=== PATIENT | female | born 1980 | race African-American/Black ===

== ENCOUNTER 2025-02-19 14:27 | Emergency (ER) | payer OTHER, SELFPAY ==
--- OUTSIDE RECORDS SUMMARY | 2004-08-17 09:30 | XMS_ITS | Continuity of Care Document ---
Author Organization [facility] Address [address] [place] [phone] Phone Care Team Providers Care Team Truck Driver Name Role Phone Yao Jackson MD Unavailable Unavailable Advance Directives Directive Yes / No Effective Date File Name No Information Encounters Encounter Description Practice Location Reason(s) For Visit Diagnoses Date Provider Providers Copied on Encounter [facility], [address] [place] [address], [id number], tel:[phone] [facility] 710 No Information Manuel Samayoa. [address] [place] [address], [id number], [place]. tel:[phone] Family History Family Member Type Diagnosis Age At Onset No Information Payers Payer name Insurance type Covered green party ID Ayla markham(s) Medicaid [id number] Social History Type Description Quantity Date Captured Comments Sex Female Smoking Status No Information Chief Complaint And Reason For Visit No Information Reason For Referral Reason For Referral No Information History Of Present Illness Encounter Date Complaint History Of Prese nt Illness No Information Functional Status Date Functional Assessmen t No Information Instructions Date Instruction Additional Infor mation No Information Assessments Type Assessment Date No Information Patient Care Teams Name Effective Dates (start - stop) Status Members No Information
[2025-02-19 14:37] VITALS: BP 150/74; PULSE 80; RESP 18; TEMP 36.4; O2SAT 98; BMI 32.7
--- NOTE | 2025-02-19 14:40 | ED.GENADULT ---
HPI - General Adult General Chief complaint: General Medical Stated complaint: Blood In Stool Related Data Allergies Allergy/AdvReac Type Severity Reaction Status Date / Time acetaminophen (Percocet) Allergy Unknown Unknown Verified 02/19/25 14:39 codeine (Codeine) Allergy Unknown UNKNOWN Verified 02/19/25 14:39 meperidine (Demerol) Allergy Unknown Unknown Verified 02/19/25 14:39 morphine (Morphine) Allergy Unknown UNKNOWN Verified 02/19/25 14:39 oxycodone (Percocet) Allergy Unknown Unknown Verified 02/19/25 14:39 From Demerol Allergy Unknown UNKNONW Uncoded 02/19/25 14:39 From Percocet Allergy Unknown UNKNOWN Uncoded 02/19/25 14:39 PMFSH Social History Social History Do you have a plan to hurt others: No Plan Physical Exam ED Vital Signs: Vital Signs - 24 hr 02/19/25 14:37 Temperature 97.6 F Pulse Rate 80 Respiratory Rate 18 Blood Pressure 150/74 H Pulse Oximetry 98 Oxygen Delivery Method Room Air BMI result Body Mass Index 32.7 Course Course Course Narrative: Rapid medical examination performed in triage by Christi Orta PA-C: Patient is a 44 year old assigned female at presenting to the emergency department with rectal pain. Patient states she has had increased rectal pain from her known hemorrhoids with bleeding. Detailed physical exam and review of systems are deferred to the home hospice aide. Labs ordered. Patient placed back in the waiting room pending room availability and results. Discharge Plan Discharge Print Language: Greenlandic
[2025-02-19 14:56] LABS: MANUAL DIFF FLAG NO
[2025-02-19 15:01] LABS: Hematocrit 42.1 % (37.0-47.0); Hemoglobin 15.0 g/dl (12.0-16.0); Imm Gran Abs Auto 0.02 X10*3/uL (0.00-0.03); Imm Gran Pct Auto 0.2 % (0.0-0.4); Lymphocytes Absolute Auto 3.0 X10*3/uL (1.2-4.9); Mean Corpuscular HGB Conc 35.6 g/dl (31.0-35.0); Mean Corpuscular Hemoglobin 30.7 pg (27.0-33.0); Mean Corpuscular Volume 86.1 fL (80.0-98.0); NRBC Abs Auto 0.000 X10*3/uL (0.0-0.012); NRBC Pct Auto 0.0 /100WBC (0.0-0.2); Platelet Count 217 X10*3/uL (160-400); Red Blood Count 4.89 X10*6/uL (4.20-5.50); White Blood Count 8.0 X10*3/uL (4.8-10.8)
[2025-02-19 15:17] LABS: Alanine Aminotransferase 14 U/L (0-31); Albumin Level 4.2 g/dL (3.5-5.0); Alkaline Phosphatase 111 U/L (39-117); Anion Gap 12 (12-20); Aspartate Amino Transferase 17 U/L (5-31); Blood Urea Nitrogen 5 mg/dL (9-16); Calcium 9.2 mg/dL (8.4-10.2); Carbon Dioxide 20 mmol/L (22-29); Chloride 108 mmol/L (96-108); Creatinine Clr Calc Pharmacy 122.3; Estimated Glomerular Filt Rate > 60; Potassium 3.9 mmol/L (3.3-5.1); Sodium 136 mmol/L (135-145); Total Protein 7.3 g/dL (6.5-8.0)
--- NOTE | 2025-02-19 17:01 | PC.NURSE ---
Pt called x 2 for bed, no answer. ED reg confirmed pt left, LWCT
--- OUTSIDE RECORDS SUMMARY | 2025-02-19 18:51 | XMS_ITS | Clinical Summary ---
Author Organization [facility] Address [address] [place] [address] Care Team Providers Care Foundry Engineer Name Role Phone Bayron Zhu Primary Care Provider Source Comments PLEASE NOTE, if this patient is a minor, it may be UNLAWFUL to discuss sensitive information that is contained in these records (such as FAMILY PLANNING, MENTAL HEALTH or SUBSTANCE ABUSE) with the minor patient's parent or other person without the patient's specific authorization.[facility] Allergies Active Allergy Reactions Criticality Noted Date Comments Codeine 05/11/2022 Other reaction(s): chest pain Meperidine 05/11/2022 Other reaction(s): chest pain Morphine 05/11/2022 Other reaction(s): Chest pain Oxycodone-Acetaminophen 05/11/2022 Other reaction(s): itch Medications amoxicillin (AMOXIL) 500 mg capsuleIndicatio ns:Infected tooth Take 1 Cap by mouth 3 (three) times daily 21 Cap 9 Active amoxicillin-pot clavulanate (AUGMENTIN) 875-125 mg per tabletIndication s:Tooth infection Take 1 Tab by mouth 2 (two) times daily 14 Tab 9 Active ibuprofen (ADVIL,MOTRIN) 800 mg tabletIndication s:Toothache Take 1 Tab by mouth 3 (three) times daily as needed for pain 30 Tab 9 Active ibuprofen (ADVIL,MOTRIN) 600 mg tablet Take 1 Tab by mouth 4 (four) times daily as needed for pain 20 Tab 9 Active hydrocortisone (PROCTOZONE-HC) 2.5 % topical cream Apply topically 2 Active ferrous sulfate 325 mg (65 mg iron) EC tablet Take 325 mg by mouth 04/29/202 2 Active DULoxetine (CYMBALTA) [address] capsule 3 Active Active Problems No known active problems Social History Tobacco Use Types Packs/Day Years Used Date Smoking Tobacco: Never Passive Smoke Exposure: Never Smokeless Tobacco: Never Tobacco Cessation:Counseling Given: Not Answered Social Connections Answer Date Recorded Connectedness 0 01/02/2024 Financial Resource Strain Answer Date R ecorded Financial Resource Strain 0 2021 Stress Answer Date Recorded Stress 0 02/23/2022 Physical Activity Answer Date Recorded Physical Activity 0 02/23/2022 Food Insecurity Answer Date Recorded Food 0 01/10/2024 Transportation Needs Answer Date Record ed Transportation 0 02/23/2022 Housing Stability Answer Date Recorded Housing 0 02/23/2022 Safety and Environment Answer Date Abdi rded Safety 0 02/23/2022 Utilities Answer Date Recorded Utilities 0 02/23/2022 Employment Answer Date Recorded Stress 0 01/02/2024 Comments Unknown Sex and Gender Information Value Date Recorded Sex Assigned at Not on file Legal Sex Female 11:36 AM PDT Gender Identity Not on file Sexual Orientation Not on file Last Filed Vital Signs Vital Sign Reading Time Taken Comments Blood Pressure 152/94 04/22/2024 11:07 AM EST Pulse 76 04/22/2024 11:07 AM EST Temperature - - Respiratory Rate - - Oxygen Saturation - - Inhaled Oxygen Concentration - - Weight - - Height - - Body Mass Index - - Plan of Treatment Health Maintenance Due Date Last Done Comments Anxiety Screening 1979 Diabetes Screening 1979 HPV Screening (self-collect) 1979 HPV Screening 1979 Hepatitis C Screening 1979 Lipid Screening 1979 Pap + HPV 1979 HIV Screening 12/21/1994 Relationship Safety Screening/Counseling 12/21/1994 Medicare Annual Wellness Visit 12/21/1997 Imm-Hepatitis B (1 of 3 - 19 + 3-dose series) 12/21/1998 Imm-HPV (1 - 3-dose SCDM series) 12/21/2006 Cervical Cancer Screening 04/06/2014 Pap Smear 04/06/2014 04/06/2011 Breast Cancer Screening (Mammogram) 2019 Alcohol and Drug Screen 04/16/2024 Depression Annual Screen 04/16/2024 [id number] ( season) 2024 Imm-Influenza (#1) 2024 03/26/2019 CT Colonography 12/21/2024 Colonoscopy 12/21/2024 Colorectal Cancer Screening 12/21/2024 FIT/gFOBT 12/21/2024 Fecal DNA 12/21/2024 Flexible Sigmoidoscopy 12/21/2024 Tobacco Screening 04/02/2025 04/02/2024 Dental BW 04/04/2025 04/02/2024, 09/14, 05/02/2023, Additional history exists Dental Examination 04/04/2025 04/02/2024, 0 10/01/2023, 05/02/2023, Additional history exists Dental Perio Charting 04/04/2025 04/02/2024 , 10/01/2023, 05/02/2023 Dental Prophy 04/04/2025 04/02/2024, 09/14, 05/02/2023 Hypertension Screening (#1) 04/22/2025 Dental FMX/Pano 02/25/2027 02/23/2022 Imm-DTaP/Tdap/Td (2 - Td or Tdap) 05/08/2029 020 Cervical Ablation/Cold-Knife Conization Discontinued Cervical Cryotherapy Discontinued Colposcopy Discontinued Excision/Leep Discontinued HPV Genotyping Discontinued Vaginal Pap Discontinued Vulvoscopy Discontinued Procedures Procedure Name Priority Date/Time Associated Diagnosis Comments COMP PERIODONTAL EVALUATION - NEW/EST PATIENT Routine 04/02/2024 9:00 AM EST Encounter for dental examination BITEWINGS - FOUR RADIOGRAPHIC IMAGES Routine 04/02/2024 9:00 AM EST Encounter for dental examination PROPHYLAXIS - ADULT Routine 04/02/2024 9 :00 AM EST Encounter for dental examination PERIODIC ORAL EVALUATION ESTABLISHED PATIENT Routine 04/02/2024 9:00 AM EST Encounter for dental examination INTRAORAL - COMP SERIES OF RADIOGRAPHIC IMAGES Routine 02/23/2022 9:40 AM EST Dental caries extending into pulp from Last 3 Months or Most Recently Relevant to Health Maintenance Insurance [facility] Member Subscriber Plan / Payer (Ef fective 2023-Present) Name:Guillermina Recinos Relation to Subscriber:Self Name:Guillermina Recinos Payer ID:[id number] Group ID:Not on file Type:Medicare Address: [place] [id number] Care Teams Foundry Engineer Relationship Specialty Start Date End Date Bayron Zhu PA PCP - General Internal Medicine 10/01/17
--- OUTSIDE RECORDS SUMMARY | 2025-02-19 18:51 | XMS_ITS | Clinical Summary ---
Author Organization [facility] Address [address] [place] [address] Care Team Providers Care Promotions Coordinator Name Role Phone Ethel Hurtado MD Primary Care Provider + [phone] Surgical History Surgery Date Site/Laterality Comments KIDNEY STONE SURGERY PROCEDURE: NE NEPHROLITHOTOMY REMOVAL CALCULUS; COMMENT: 4-5 procedurs APPENDECTOMY PROCEDURE: NE APPENDECTOMY CHOLECYSTECTOMY PROCEDURE: NE CHOLECYSTECTOMY OTHER SURGICAL HISTORY PROCEDURE: NE LAPS TX ECTOPIC PREG W/SALPING&/OOPHORECTOMY SECTION PROCEDURE: NE DELIVERY ONLY Medical History Medical History Date Comments Fibromyalgia 10/02/2012 DX:Fibromyalgia; COMMENT: [facility] 10/26-minimal records available from [facility] mainly physician gynecologist.no fibromyalgia chf or medullary sponge etc even mentioned in these papers Migraine 10/02/2012 DX:Migraine Depression 10/02/2012 DX:Depression Kidney stones 10/02/2012 DX:Kidney stones Chronic abdominal pain 10/02/2012 DX:Chroni c abdominal pain; COMMENT: Several er visits in transfer records from [facility] 10/26 Mostly for abd pain different locations.has had xrays Has had different casues-BV,ruptured ectopic,kidney stones Family History Medical History Relation Name Comments Heart attack Father Relation Name Status Comments Father Mother Alive multiple sclero sis Sister Alive 1,healthy Social History Tobacco Use Types Packs/Day Years Used Date Smoking Tobacco: Never Smokeless Tobacco: Never Alcohol Use Standard Drinks/Week Comments No 0 (1 standard drink = 0.6 oz pur e alcohol) Comments Unknown Sex and Gender Information Value Date Recorded Sex Assigned at Not on file Legal Sex Female 9:54 AM EST Gender Identity Not on file Sexual Orientation Not on file Obstetrics History Plan of Treatment Health Maintenance Due Date Last Done Comments Breast Cancer Screening 1979 Colorectal Cancer Screening: Colonoscopy 1979 Hepatitis B Vaccines (1 of 3 - 19+ 3-dose series) 12/21/1998 Cervical Cancer Screening: P ap Smear 12/21/2000 HPV Vaccines (1 - 3-dose SCD M series) 12/21/2006 DTaP,Tdap,and Td Vaccines (2 - Td or Tdap) 10/02/2022 10/02/2012 HIV Screening 01/24/2024 Hepatitis C Screening 01/24/2024 Social Influencers of Health Screening 01/24/2024 Depression Screening 04/16/2024 COVID-19 Vaccine (1 - 2023-2 5 season) 2024 Influenza Vaccine (#1) 2024 RSV Immunization Adult Patie nts (1 - 1-dose 75+ series) 12/21/2054 HIB Vaccines Aged Out No longer eligi ble based on patient's age to complete this topic Hepatitis A Vaccines Aged Out No long er eligible based on patient's age to complete this topic IPV Vaccines Aged Out No longer eligi ble based on patient's age to complete this topic MMR Vaccines Aged Out No longer eligi ble based on patient's age to complete this topic Meningococcal ACWY Vaccine Aged Out N o longer eligible based on patient's age to complete this topic Meningococcal B Vaccine Aged Out No l onger eligible based on patient's age to complete this topic Pneumococcal Vaccine: Pediat rics (0 to 5 Years) and At-Risk Patients (6 to 49 Years) Aged Out No longer eligi ble based on patient's age to complete this topic RSV Immunization Patients Un yamilet 20 months Aged Out No longer eligible b ased on patient's age to complete this topic Varicella Vaccines Aged Out No longer eligible based on patient's age to complete this topic Care Teams Promotions Coordinator Relationship Specialty Start Date End Date Ethel Hurtado MD [address] [place] [phone] PCP - General 06/08/15
[2025-02-19 19:11] VITALS: BP 137/52; PULSE 64; TEMP 37.1; O2SAT 98
[2025-02-19 20:48] VITALS: BP 140/71; PULSE 62; TEMP 36.9; O2SAT 97
[2025-02-19] MEDS: Cocoa Butter/Zinc Oxide SUPP.RECT 1 SUPP PR (21:00)
[2025-02-19] MEDS: oxyCODONE HCl Immed Release 5 MG TABLET PO (21:00)
--- NOTE | 2025-02-19 21:05 | ED.GENADULT ---
HPI - General Adult General Chief complaint: General Medical Stated complaint: Blood In Stool Time Seen by Provider: 02/19/25 17:57 Source: patient Mode of arrival: ambulatory Limitations: no limitations History of Present Illness ED Provider: Dr. Paredes [facility] narrative: This is a 44-year-old female presented hospital today for evaluation of hemorrhoid pain. Patient has been having hemorrhoids for the past couple of weeks. She has difficulty passing bowel movement for the past couple of days due to the worsening of the pain. She does have bright red rectal bleeding. Patient stated this pain is excruciating. Therefore she presents to the ER for evaluation per her PCP. She has been trying to Sitz bath and hydrocortisone cream with minimal relief. Related Data Previous Rx's ?Medication ?Instructions ?Recorded lidocaine 3 %-hydrocortisone 0.5 % 1 appl NE BID #98 grams 02/19/25 rectal cream nitroglycerin 0.4 % (w/w) rectal 1 inch NE BID #30 grams 02/19/25 ointment oxycodone 5 mg tablet 5 mg PO Q8H PRN pain 4 days #14 02/19/25 tabs sennosides 8.6 mg capsule (senna) 8.6 mg PO DAILY 14 days #14 caps 02/19/25 Allergies Allergy/AdvReac Type Severity Reaction Status Date / Time acetaminophen (Percocet) Allergy Unknown Unknown Verified 02/19/25 14:39 codeine (Codeine) Allergy Unknown UNKNOWN Verified 02/19/25 14:39 meperidine (Demerol) Allergy Unknown Unknown Verified 02/19/25 14:39 morphine (Morphine) Allergy Unknown UNKNOWN Verified 02/19/25 14:39 oxycodone (Percocet) Allergy Unknown Unknown Verified 02/19/25 14:39 From Demerol Allergy Unknown UNKNONW Uncoded 02/19/25 14:39 From Percocet Allergy Unknown UNKNOWN Uncoded 02/19/25 14:39 Review of Systems Review of Systems: Pertinent review of systems as mentioned in HPI. All other system otherwise negative. PMFSH Past Medical History [facility] Narrative: Hemorrhoids Social History Social History Advance Directives: No Advance Directives Information Provided: No Do you have a plan to hurt others: No Plan Physical Exam ED Exam Exam: General: Pleasant, no distress, interacting appropriately Head: Normacephalic, atraumatic : She does have a large external hemorrhoids on exam. Neurological: Awake and alert, no facial droop noted Skin: Warm and dry Psychiatric: Appropriate mood and thoughts Vital Signs: Vital Signs - 24 hr 02/19/25 14:37 02/19/25 19:11 02/19/25 20:48 Temperature 97.6 F 98.7 F 98.5 F Pulse Rate 80 64 62 Respiratory Rate 18 Blood Pressure 150/74 H 137/52 L 140/71 H Pulse Oximetry 98 98 97 Oxygen Delivery Method Room Air Room Air Room Air BMI result Body Mass Index 32.7 Medications Administered Discontinued Medications Generic Name Dose Route Start Last Admin Trade Name Freq PRN Reason Stop Dose Admin Gardners Butter/Zinc Oxide 1 supp 02/19/25 19:22 02/19/25 21:00 Gardners Butter/Zinc Oxide Supp.Rect NE 02/19/25 19:23 1 supp ONCE ONE Administration Diphenhydramine HCl 25 mg 02/19/25 20:24 02/19/25 21:00 Diphenhydramine Hcl 25 Mg Capsule PO 02/19/25 20:25 25 mg ONCE ONE Administration Lidocaine 1 appl 02/19/25 19:22 02/19/25 21:10 Lidocaine 5 % Ointment 35 Gm TOPICAL 02/19/25 19:23 1 appl ONCE ONE Administration Protocol Oxycodone HCl 5 mg 02/19/25 20:23 02/19/25 21:00 Oxycodone Hcl Immed Release 5 Mg Tablet PO 02/19/25 20:24 5 mg ONCE ONE Administration Medical Decision Making Medical Decision Making [facility] Narrative: 44-year-old female presented hospital today for evaluation of hemorrhoids. Patient is having increased pain therefore she presents to the ER for evaluation. This has been going on for a couple weeks now. We will plan to give patient some zinc oxide suppository, oxycodone p.o., we will plan to give patient has some p.o. Benadryl as she does get itchiness from oxycodone. We will also plan to give some lidocaine ointment We will plan to refer the patient to General surgery for banding of this hemorrhoids. Differential Diagnosis Differential Diagnoses: The differential diagnosis associated with the presentation includes Hemorrhoids, abscess Lab Data [facility] Lab Attestation statement: I reviewed the patient's lab results. 02/19/25 14:51 02/19/25 14:51 Labs: Lab Results 02/19/25 Range/Units 14:51 WBC 8.0 (4.8-10.8) X10*3/uL RBC 4.89 (4.20-5.50) X10*6/uL Hgb 15.0 (12.0-16.0) g/dl Hct 42.1 (37.0-47.0) % MCV 86.1 (80.0-98.0) fL MCH 30.7 (27.0-33.0) pg MCHC 35.6 H (31.0-35.0) g/dl RDW 11.8 (11.0-16.0) % Plt Count 217 (160-400) X10*3/uL MPV 10.9 (9.4-12.3) fL Immature Gran % (Auto) 0.2 (0.0-0.4) % Neut % (Auto) 55.7 (45-73) % Lymph % (Auto) 37.3 (20-40) % Montgomery % (Auto) 5.6 (2-11) % Eos % (Auto) 1.0 (0-4) % Baso % (Auto) 0.2 (0-2) % Lymph # (Auto) 3.0 (1.2-4.9) X10*3/uL Montgomery # (Auto) 0.5 (0.1-1.2) X10*3/uL Eos # (Auto) 0.1 (0.0-0.4) X10*3/uL Baso # (Auto) 0.0 (0.0-0.2) X10*3/uL Abs Immat Gran (auto) 0.02 (0.00-0.03) X10*3/uL Absolute Neuts (auto) 4.5 (2.0-8.3) x10*3/uL Absolute Nucleated RBC 0.000 (0.0-0.012) X10*3/uL Nucleated RBC % (auto) 0.0 (0.0-0.2) /100WBC Sodium 136 (135-145) mmol/L Potassium 3.9 (3.3-5.1) mmol/L Chloride 108 (96-108) mmol/L Carbon Dioxide 20 L (22-29) mmol/L Anion Gap 12 (12-20) BUN 5 L (9-16) mg/dL Creatinine 0.64 (0.5-1.4) mg/dL Estim Creat Clear Calc 122.3 Estimated GFR > 60 Random Glucose 332 H (60-115) mg/dL Calcium 9.2 (8.4-10.2) mg/dL Total Bilirubin 0.5 (0.0-1.0) mg/dL AST 17 (5-31) U/L ALT 14 (0-31) U/L Alkaline Phosphatase 111 (39-117) U/L Total Protein 7.3 (6.5-8.0) g/dL Albumin 4.2 (3.5-5.0) g/dL Beta HCG, Quant < 2 mIU/mL Prescription Management I considered prescription management with: Pain Medication Discharge Plan Discharge Clinical Impression: Acute hemorrhoid Patient Disposition: Home, Self-Care Instructions: Sitz Bath (DC) Prescriptions: New senna 8.6 mg capsule 8.6 mg PO DAILY 14 Days Qty: 14 0RF oxycodone 5 mg tablet 5 mg PO Q8H PRN (Reason: pain) 4 Days Qty: 14 0RF Rx Instructions: Partial Fill upon patient request. lidocaine HCl-hydrocortison ac 3-0.5 % cream 1 appl NE BID Qty: 98 0RF nitroglycerin 0.4 % (w/w) ointment 1 inch NE BID Qty: 30 0RF Referrals: [facility] General Surgeons [Provider Group, General Surgery] Referral Note: Hemorrhoids x 2 weeks, no relief with sitz or hydrocortisone cream. Evaluate for hemorrhoid banding please Clinical Impression: Acute hemorrhoid Print Language: Ukrainian
[2025-02-19 21:57] VITALS: BP 136/70; PULSE 58; TEMP 36.8; O2SAT 98
[2025-02-19 22:03] VITALS: BP 136/70; PULSE 58; RESP 16; TEMP 36.8; O2SAT 98
== END 2025-02-19 22:07 | disposition home or self-care (01) ==
PROVIDERS: Physician Assistant Medical; Emergency Provider Student in an Organized Health Care Education/Training Program
DX: K64.9 Unspecified hemorrhoids (principal)
CPT/HCPCS: 36415; 80053; 84702; 85025; 99283

== ENCOUNTER 2025-03-25 13:47 | Outpatient (AMB) | payer OTHER, SELFPAY ==
--- NOTE | 2025-03-25 13:49 | A.OFFVIS_ITS ---
Vital Signs 03/25/25 13:59 Height 5 ft 5 in Weight 198 lb 8 oz BMI 33.0 BP 137/62 Blood Pressure Location Rt brachial Position Sitting Pulse 86 Intake Visit Reasons: bleeding hemorrhoids Intake Note: Patient presents for an assessment for bleeding hemorrhoids. Pt c/o; occasional rectal bleeding, she had a colonoscopy at [facility] in 2022, reports sharp rectal pain and is unable to stand for prolong periods of time, reports swelling. Health Care Analyst Required: No Accompanied by: Self / Same As Patient Allergies acetaminophen (Percocet) Allergy (Unknown, Verified 03/25/25 14:00) Unknown codeine (Codeine) Allergy (Unknown, Verified 03/25/25:00) UNKNOWN meperidine (Demerol) Allergy (Unknown, Verified 03/25/25:00) Unknown morphine (Morphine) Allergy (Unknown, Verified 03/25/25:00) UNKNOWN oxycodone (Percocet) Allergy (Unknown, Verified 03/25/25:00) Unknown From Demerol Allergy (Unknown, Uncoded 03/25/25:00) UNKNONW From Percocet Allergy (Unknown, Uncoded 03/25/25 14:00) UNKNOWN HPI HPI bleeding hemorrhoids: Details: [age] year old female referred for hemorrhoid issues. She says that she has had hemorrhoids since she had about 30 years ago. However, past several years, she had been noticing periodic swelling, pain and irritation with the hemorrhoids. Furthermore, once him nausea with notice small amounts of blood on wiping She admits to occasionally getting constipated. She says that this has because of multiple medications that she takes. [facility] Medical History (Updated 03/25/25 @ 14:10 by Chuckie Strong MD) Internal and external hemorrhoids without complication Surgical History H/O section H/O tubal ligation History of partial hysterectomy Hx of appendectomy History of cholecystectomy Family History Other Family history unknown Social History Alcohol intake: unknown Patient Tobacco Use Status: Tobacco use Unknown Review of Systems Const Denies chills and Denies fever(s) Card Denies chest pain, Denies dyspnea and Denies dyspnea on exertion Resp Denies cough, Denies dyspnea and Denies dyspnea on exertion GI Reports hematochezia and Denies change in bowel habits Denies hematuria Musc Denies back pain and Denies limited range of motion Neuro Denies focal weakness and Denies convulsions Psych Denies depression and Denies mood swings Physical Exam Const General: comfortable and no acute distress Nutritional Appearance: obese Orientation/consciousness: patient oriented x3 Neck Neck: Yes no lymphadenopathy Resp Auscultation: clear to auscultation bilaterally Cardio Rhythm: regular rhythm GI Other: Rectal exam shows moderate size external hemorrhoids on both the left and right side Palpation (GI): Soft to palpation, nontender and no guarding Neuro General: patient oriented x3 Office Procedures Anoscopy She was in kneeling syd-knife position. The anoscope was gently inserted. A full examination of the anal canal was done. She did have very prominent internal external hemorrhoidal columns on both the left and right side. There were no lesions seen. There was no fissure ulceration. There is no induration on digital exam there is no bleeding. [id number] Assessment & Plan Assessment & Plan (1) Internal and external hemorrhoids without complication: Code(s): K64.4 - Residual hemorrhoidal skin tags; K64.8 - Other hemorrhoids Category: Medical Plan: She describes having periodic problems with pain, bleeding and swelling with the hemorrhoids. She does have large internal external hemorrhoidal columns on both the left and right side. I had a long discussion with her about the option of hemorrhoidectomy. I explained the technique of the procedure. I reviewed the risks, benefits, and alternatives. I also explained to her what to expect postoperatively She says that at this time, she does not really want to undergo surgery at all. I did explain to him the importance of avoiding straining and constipation. I will write her for a prescription for Colace. I told her that she should come back to the office at some point in the future to have a follow up. She says she understands the plan well Coding Level of Care Code New Pt Level 3 (29929) Diagnoses Internal and external hemorrhoids without complication K64.4; K64.8 CPT Codes Details - CPT: 30591-[id number] ([id number])
[2025-03-25 13:59] VITALS: BP 137/62; PULSE 86; BMI 33.0
--- OUTSIDE RECORDS SUMMARY | 2025-03-25 21:21 | XMS_ITS | Clinical Summary ---
Author Organization [facility] ity Address [address] [place] [address] Care Team Providers Care Transportation Director Name Role Phone Ethel Hurtado MD Primary Care Provider + [phone] Surgical History Surgery Date Site/Laterality Comments KIDNEY STONE SURGERY PROCEDURE: [place] NEPHROLITHOTOMY REMOVAL CALCULUS; COMMENT: 4-5 procedurs APPENDECTOMY PROCEDURE: MA APPENDECTOMY CHOLECYSTECTOMY PROCEDURE: MA CHOLECYSTECTOMY OTHER SURGICAL HISTORY PROCEDURE: MA LAPS TX ECTOPIC PREG W/SALPING&/OOPHORECTOMY SECTION PROCEDURE: MA DELIVERY ONLY Medical History Medical History Date Comments Fibromyalgia 10/02/2012 DX:Fibromyalgia; COMMENT: [facility] 10/26-minimal records available from [facility] 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.no fibromyalgia chf or medullary sponge etc even mentioned in these papers Migraine 10/02/2012 DX:Migraine Depression 10/02/2012 DX:Depression Kidney stones 10/02/2012 DX:Kidney stones Chronic abdominal pain 10/02/2012 DX:Chroni c abdominal pain; COMMENT: Several er visits in transfer records from [facility] 10/26 Mostly for abd pain different locations.has [...] on file Sexual Orientation Not on file Plan of Treatment Health Maintenance Due Date [...] Depression Screening 04/16/2024 COVID-19 Vaccine (1 - 2024-2 6 season) 2024 Influenza Vaccine (#1) 2024 RSV [...] age to complete this topic Care Teams Transportation Director Relationship Specialty Start Date End Date Ethel Hurtado MD [address] [place] [phone] PCP - General 06/08/15
== END 2025-03-25 14:06 | disposition home or self-care (01) ==
LOC: HO.HGS 13:48
PROVIDERS: PCP Physician Assistant Medical; Visit Provider Surgery
DX: K64.4 Residual hemorrhoidal skin tags (principal); K64.8 Other hemorrhoids
CPT/HCPCS: 46600; 99203

== ENCOUNTER → 2025-03-25 13:47 | Outpatient (BNVA) | payer OTHER, SELFPAY | PROVIDERS: PCP Physician Assistant Medical; Visit Provider Surgery | DX: K64.4 Residual hemorrhoidal skin tags (principal); K64.8 Other hemorrhoids; K59.00 Constipation, unspecified | CPT/HCPCS: 46600; 99202 ==